=== PATIENT | male | born 1990 | race Caucasian/White ===

== ENCOUNTER 2017-02-25 10:20 | Emergency (ER) | payer OTHER ==
[2017-02-25 10:31] VITALS: BP 127/85
--- NOTE | 2017-02-25 10:49 | EDM.PDOC ---
ED HPI GENERAL MEDICAL PROBLEM - General Chief Complaint: Lower Extremity Injury/Pain Stated Complaint: LT ANKLE INJURY Time Seen by Provider: 02/25/17 10:39 Source of Information: Reports: Patient History Limitations: Reports: No Limitations - History of Present Illness INITIAL COMMENTS - FREE TEXT/NARRATIVE: 18-year-old male reports to the ED after an acute injury to his left ankle occurred this morning in the workplace. Step down from machinery and landed on uneven ground with a resultant inversion injury to the left ankle causing him to fall. He were put in place. He was able to weight-bear for a period time after this but after a couple of hours is no longer able to weight-bear. Examination shows ecchymoses dorsal lateral ankle. No previous injuries to this ankle or surgery. Denies any other injuries. Onset: Today Onset Date: 02/25/17 Onset Time: 05:00 Duration: Hour(s):, Getting Worse Location: Reports: Lower Extremity, Left (Left lateral ankle ) Quality: Reports: Ache, Throbbing Severity: Moderate Improves with: Reports: None Worsens with: Reports: Movement Context: Reports: Trauma. 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 [No Known Home Meds] 02/25/17 [History] Social & Family History - Living Situation & Occupation Occupation: Employed Review of Systems - Review of Systems Review Of Systems: See Below Constitutional: Reports: No Symptoms Eyes: Reports: No Symptoms Ears: Reports: No Symptoms Nose: Reports: No Symptoms Mouth/Throat: Reports: No Symptoms Respiratory: Reports: No Symptoms Cardiovascular: Reports: No Symptoms GI/Abdominal: Reports: No Symptoms Genitourinary: Reports: No Symptoms Musculoskeletal: Reports: No Symptoms Skin: Reports: No Symptoms Neurological: Reports: No Symptoms Psychiatric: Reports: No Symptoms ED EXAM, GENERAL - Physical Exam Exam: See Below Exam Limited By: No Limitations General Appearance: Alert, WD/WN, No Apparent Distress Extremities: Other (Patient has some pain on the anterior medial ligament. The deltoid ligament is intact. There is some ecchymoses along the posterior third the dorsal lateral aspect of the left ankle. Pain throughout all of the ankle ligaments laterally. Stability will be checked once we rule out a fracture.) Neurological: Alert, Oriented, CN II-XII Intact, Normal Cognition, Normal Gait Psychiatric: Normal Affect, Normal Mood Skin Exam: Warm, Dry, Intact, Normal Color, No Rash Course - Vital Signs Last Recorded V/S: Last Vital Signs Temp 36.3 C 02/25/17 10:28 Pulse 66 02/25/17 10:28 Resp 16 02/25/17 10:28 BP 127/85 02/25/17 10:28 Pulse Ox 97 02/25/17 10:28 - Orders/Labs/Meds Orders: Active Orders 24 hr Category Date Time Status Ankle Min 3V Lt [CR] Stat Exams 02/25/17 10:44 Taken Meds: Medications Discontinued Medications Generic Name Dose Route Start Last Admin Trade Name Freq PRN Reason Stop Dose Admin Ibuprofen 800 mg 02/25/17 11:16 Motrin PO 02/25/17 11:17 ONETIME ONE - Radiology Interpretation Free Text/Narrative:: 18-year-old male presents to the ED with a work-related injury. Stepping onto machinery this morning onto uneven ground resulted in an inversion injury to his left ankle. He was wearing a fairly dense boot that shows supportive ankle but he suffered an inversion injury. He has ecchymoses developing on the dorsal lateral aspect of the ankle and foot. He is unable to weight-bear more than 3 steps at this time. X-ray of the ankle to be obtained. - Re-Assessments/Exams Free Text/Narrative Re-Assessment/Exam: 02/25/17 11:18 x-rays of the left ankle are negative for fracture. Jama wrap was placed. Patient will be weightbearing with a good lace up boot. 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 He will use Motrin 600 mg every 6 hours. For pain and inflammation relief. Jama wrap applied which will made on during the day and off at night. Ice pack to the area when he gets respirate for one half hour out of every 4 hours today and tomorrow. Follow up if not back to normal in 14 days time. Departure - Departure Time of Disposition: 11:16 Disposition: Home, Self-Care 01 Condition: fair Clinical Impression: Inversion sprain of left ankle Qualifiers: Encounter type: initial encounter Qualified Code(s): S93.402A - Sprain of unspecified ligament of left ankle, initial encounter - Discharge Information Referrals: PCP,None [Primary Care Provider] - Forms: ED Department Discharge, Return to Work/School Form Additional Instructions: Evaluation in the emergency room today in regards to inversion injury to the left ankle that occurred in the workplace this morning. This occurred while stepping down from machinery on onto uneven ground. There is some swelling and bruising of the dorsal lateral ankle. Examination shows the ligaments to be stable. X-rays were carried out and did not reveal any broken bones. Treatment is Jama wrap on during the day and off at night. Ice pack to the area ideally for one half hour out of every 4 hours for 2 days to reduce swelling. Motrin 600 mg every 6 hours to reduce pain and inflammation. Expect about 10-12 days for this to heal again noted you could run up a flight of stairs. You're not able to do so in 14 days time it should be reviewed. Wearing a good tight boot ideally laced up may well support the ankle ligaments while in the workplace. May return to the workplace as you feel he will still be able to carry on with the duties of her job at this time - My Orders Last 24 Hours: My Active Orders 02/25/17 10:44 Ankle Min 3V Lt [CR] Stat - Assessment/Plan Last 24 Hours: My Active Orders 02/25/17 10:44 Ankle Min 3V Lt [CR] Stat
[2017-02-25] MEDS ORDERED: Ibuprofen 800 MG Tab PO ONE (11:16)
--- NOTE | 2017-02-26 09:37 | CR ---
Left ankle: Four views of the left ankle were obtained. Comparison: No previous study. Ankle mortise is symmetric. No fracture, dislocation or other bony abnormality is seen. Impression: 1. No abnormality is identified on four-view left ankle study. Diagnostic code #1
== END 2017-02-25 11:23 | disposition home or self-care (01) ==
LOC: JD.ED 10:20
DX: S93.402A Sprain of unspecified ligament of left ankle, initial encounter (principal); X50.1XXA Overexertion from prolonged static or awkward postures, initial encounter; W19.XXXA Unspecified fall, initial encounter; Y92.69 Other specified industrial and construction area as the place of occurrence of the external cause; Y99.0 Civilian activity done for income or pay
CPT/HCPCS: 73610; 99283; A9270; 99282